=== PATIENT | male | born 1980 | race Caucasian/White ===

== ENCOUNTER 2024-01-23 01:09 | Emergency (ER) | payer BC, SELFPAY ==
[2024-01-23 01:13] VITALS: BP 150/94; PULSE 76; RESP 20; TEMP 37.1; O2SAT 99
[2024-01-23 01:36] LABS: Basophils Absolute Auto 0.1 K/mm3 (0.0-0.1); Basophils Percent Auto 0.7 % (0.2-1.2); Eosinophils Absolute Auto 0.2 K/mm3 (0-0.3); Eosinophils Percent Auto 3.3 % (0-4.4); Hematocrit 37.6 % (42.0-52.0); Hemoglobin 12.3 g/dL (14.0-18.0); Immature Granulocyte Absolute 0.02 K/mm3 (0.00-0.031); Immature Granulocyte Percent A 0.3 % (0-0.5); Lymphocytes Absolute Auto 2.24 K/mm3 (0.9-3.2); Lymphocytes Percent Auto 32.1 % (18.3-44.2); Mean Corpuscular HGB Conc 32.7 g/dl (32-36); Mean Corpuscular Hemoglobin 31.8 pg (26-34); Mean Corpuscular Volume 97.2 fl (80-100); Mean Platelet Volume 9.5 fl (7.4-10.4); Monocytes Absolute Auto 0.8 K/mm3 (0.1-0.6); Monocytes Percent Auto 11.5 % (2.6-8.5); Neutrophils Absolute Auto 3.6 K/mm3 (1.3-6.7); Neutrophils Percent Auto 52.1 % (45.5-73.1); Platelet Count Result 305 k/mm3 (150-375); Red Blood Count 3.87 M/mm3 (4.6-6.20); Red Cell Distribution Width 13.4 % (11.5-14.5)
[2024-01-23 01:45] LABS: Alanine Aminotransferase 38 U/L (6-50); Albumin Level 4.3 g/dL (3.5-5.1); Alkaline Phosphatase 61 U/L (38-126); Anion Gap 6 mmol/L (4-12); Aspartate Amino Transferase 39 U/L (17-59); Bilirubin,Total 0.5 mg/dL (0.2-1.3); Blood Urea Nitrogen 15 mg/dL (9-20); Calcium 9.1 mg/dL (8.4-10.2); Carbon Dioxide 30 mmol/L (22-30); Chloride 104 mmol/L (98-107); Estimated CRCL calculation 80 ml/min; Estimated Glomerular Filt Rate > 60; Glucose 66 mg/dL (65-110); Potassium 4.1 mmol/L (3.4-5.0); Sodium 140 mmol/L (137-145)
[2024-01-23 02:08] LABS: Appearance Urine Turbid (Clear); Bacteria Urine None Seen /hpf; Bilirubin Urine Negative (Negative); Blood Urine Negative (Negative); Color Urine Yellow (Yellow); Glucose Urine UA Negative (Negative); Ketones Urine Negative (Negative); Leukocyte Esterase Ur Negative LEU/UL (Negative); Nitrate Urine Negative (Negative); Non Pathogenic Casts 0-2; Protein Urine Negative (Negative); RBC Urine 0-2 /hpf (0-2); Specific Grav Ur 1.024 (1.001-1.035); Squamous Epithelial Cell Urine None Seen /hpf (Few); WBC Urine 0-5 /hpf (0-3)
[2024-01-23 02:10] LABS: Add Urine Microscopic? YES
[2024-01-23 02:12] LABS: SARS-CoV-2 RNA PCR Negative (Negative)
[2024-01-23] MEDS: LORazepam (*CRX) 1 MG TABLET PO (02:12)
[2024-01-23 02:15] LABS: Barbiturate Screen Urine Negative (Negative); Benzodiazepines Screen Urine Negative (Negative)
[2024-01-23 02:17] LABS: Cannabinoid Screen Urine Positive (Negative); Cocaine Screen Urine Negative (Negative); Methadone Screen Urine Negative (Negative); Opiate Screen Urine Negative (Negative); Phencyclidine Screen Urine Negative (Negative)
--- NOTE | 2024-01-23 02:19 | ED.PSYCH ---
HPI - Psych General Chief Complaint: Psychiatric Symptoms <Pranav Nieves MD - Last Filed: 01/23/24 07:06> Stated Complaint: SI <Pranav Nieves MD - Last Filed: 01/23/24 07:06> Time Seen by Provider: 01/23/24 01:52 <Pranav Nieves MD - Last Filed: 01/23/24 07:06> Source: patient <Pranav Nieves MD - Last Filed: 01/23/24 07:06> Mode of arrival: ambulatory <Pranav Nieves MD - Last Filed: 01/23/24 07:06> Limitations: no limitations <Pranav Nieves MD - Last Filed: 01/23/24 07:06> History of Present Illness HPI Narrative: 43-year-old male presenting with suicidal ideation. Plans to run into traffic. Actually says he ran into traffic 5 times today and try to get by car to . His mother recently he has been depressed. Also uses methamphetamine. Has been admitted to multiple psychiatric facilities in the past. No homicidal ideation or plan. <Pranav Nieves MD - Last Filed: 01/23/24 07:06> Related Data Allergies/Adverse Reactions: Allergies Allergy/AdvReac Type Severity Reaction Status Date / Time No Known Allergies Allergy Verified 01/23/24 01:13 <Pranav Nieves MD - Last Filed: 01/23/24 07:06> Review of Systems Review of Systems: All systems reviewed & are unremarkable except as noted in HPI and below <Pranav Nieves MD - Last Filed: 01/23/24 07:06> [facility] Social History Social History: Social History Substance use type: methamphetamine and other <Pranav Nieves MD - Last Filed: 01/23/24 07:06> Exam Narrative: Constitutional: Generally well appearing, no acute distress . Poorly kempt Head: Atraumatic, no deformities. right parietal and temporal region shows well-healed surgical wound Eyes: Pupils equal, round, and reactive to light. Neck: Supple, no tracheal deviation, no JVD. ENMT: Mucous membranes moist Cardiovascular: S1, S2 auscultated. No murmurs, rubs, or gallops. No S3/S4. Normal Distal pulses. No peripheral edema. Respiratory: Lung sounds equal. No wheezes, rales, or rhonchi. Gastrointestinal: Abdomen was soft and non-tender. Non-distended. No rebound or guarding. Genitourinary: Deferred Musculoskeletal: Normal muscle tone and bulk. No obvious deformities or tenderness over extremities. Skin: No rashes. Neurological: Strength 5/5 in extremities. Cranial nerves I-XII grossly intact. Distal sensation intact. Mental Status: Awake, alert and oriented x3. Follows commands. Suicidal ideation with plan. No homicidal ideation or plan. <Pranav Nieves MD - Last Filed: 01/23/24 07:06> Course Course Emergency Course: 07:00 - Patient signed out to me by previous ED physician, Dr. Nieves with plan for voluntary psychiatric admission. 11:07 - The patient is now denies suicidal and homicidal ideations to 3 staff in the emergency department including myself. He states he was distraught over his mother's recent . He states he wants to continue living to take care of his son. He denies homicidal ideations or hallucinations. He wishes to go. I do not suspect the patient is a risk to himself and others. Will discharge. I discussed the findings and recommendations with on the patient. Discussed return and emergency precautions including signs/symptoms of ACS and respiratory distress. The patient voiced understanding and agreement with the plan. All questions answered to his satisfaction. <Maurice Chao MD - Last Filed: 01/23/24 11:11> Vital Signs Vital signs: Vital Signs Temperature 98.8 F 01/23/24 01:13 Pulse Rate 76 01/23/24 01:13 Respiratory Rate 20 01/23/24 01:13 Blood Pressure 150/94 H 01/23/24 01:13 Pulse Oximetry 99 01/23/24 01:13 Oxygen Delivery Room Air 01/23/24 01:13 Temperature 98.8 F 01/23/24 01:13 Pulse Rate 69 01/23/24 07:25 Respiratory Rate 15 01/23/24 07:25 Bloo
[2024-01-23 02:25] LABS: Thyroid Stimulating Hormone Reflex 0.733 uIU/mL (0.465-4.68)
[2024-01-23 02:32] LABS: Amphetamine Screen Urine Positive (Negative)
[2024-01-23 03:24] LABS: Ethanol < 10 mg/dL (<10)
[2024-01-23 07:25] VITALS: BP 113/75; PULSE 69; RESP 15; O2SAT 100
--- NOTE | 2024-01-23 09:18 | PC.NURSE ---
Faxed chart to [facility]
--- NOTE | 2024-01-23 10:26 | PC.NURSE ---
This RN spoke with Isabela [facility] who stated pt accepting physician is
--- NOTE | 2024-01-23 10:42 | PC.NURSE ---
[facility]
--- NOTE | 2024-01-23 10:52 | PC.NURSE ---
Faxes sent to [facility] and [facility]
[2024-01-23 11:27] VITALS: BP 115/77; PULSE 87; RESP 18; TEMP 36.6; O2SAT 100
[2024-01-23 11:46] VITALS: BP 115/77; PULSE 82; RESP 16; TEMP 36.6; O2SAT 100
== END 2024-01-23 11:51 | disposition home or self-care (01) ==
PROVIDERS: Emergency Medicine; Emergency Provider Preventive Medicine Aerospace Medicine
DX: F32.A Depression, unspecified (principal); F15.10 Other stimulant abuse, uncomplicated; Z11.52 Encounter for screening for COVID-19
CPT/HCPCS: 36415; 80053; 80307; 81001; 84443; 85025; 87635; 99284; A9270